=== PATIENT | male | born 1975 | race African-American/Black ===

== ENCOUNTER 2016-09-17 11:30 | Emergency (ER) | payer SELFPAY ==
[~2016-09-17] VITALS: Ht 175.3 cm; Wt 86.0 kg
[~2016-09-17 11:30] MED LIST: AMLO10TA80 PO; HYDR25TA PO
[2016-09-17 11:40] VITALS: BP 140/95
[2016-09-17] MEDS ORDERED: KETOROLAC 60MG/2ML VIAL IM ONE (12:15)
== END 2016-09-17 12:30 | disposition left against medical advice (07) ==
LOC: ER 12:15
DX: S39.012A Strain of muscle, fascia and tendon of lower back, initial encounter (principal); I10 Essential (primary) hypertension; Z79.899 Other long term (current) drug therapy; X50.0XXA Overexertion from strenuous movement or load, initial encounter; Y93.89 Activity, other specified; Y92.89 Other specified places as the place of occurrence of the external cause; Y99.8 Other external cause status
CPT/HCPCS: 96372; 99283; J1885

== ENCOUNTER 2018-12-08 08:47 | Emergency (ER) | payer MEDICAID ==
[~2018-12-08] VITALS: Ht 175.3 cm; Wt 88.0 kg
[~2018-12-08 08:47] MED LIST changes: +TRIA1TAB92 PO
[2018-12-08] MEDS ORDERED: KETOROLAC 15MG/ML VIAL IM ONE (09:45)
[2018-12-08 09:48] VITALS: BP 132/81
== END 2018-12-08 09:49 | disposition home or self-care (01) ==
LOC: ER 08:47
DX: S39.012A Strain of muscle, fascia and tendon of lower back, initial encounter (principal); I10 Essential (primary) hypertension; X58.XXXA Exposure to other specified factors, initial encounter; Y93.89 Activity, other specified; Y92.89 Other specified places as the place of occurrence of the external cause; Y99.8 Other external cause status; Z98.890 Other specified postprocedural states; Z79.899 Other long term (current) drug therapy
CPT/HCPCS: 96372; 99283; J1885